=== PATIENT | female | born 1955 | race African-American/Black ===

== ENCOUNTER 2017-07-21 16:43 | Inpatient (IN) | payer MEDICARE, MEDICAID ==
[~2017-07-21] VITALS: Ht 165.1 cm; Wt 67.7 kg
[~2017-07-21 16:43] MED LIST: BENZ1TAB10 PO; LISI-662 PO; LITH300C3 PO; RISP3 PO
[2017-07-21] MEDS ORDERED: LORazepam 1 MG TABLET PO PRN (19:15)
[2017-07-21] MEDS ORDERED: HALOPERIDOL 5 MG TABLET PO PRN (19:15)
[2017-07-21 19:26] VITALS: BP 121/69
[2017-07-21 19:55] VITALS: BP 128/82
[2017-07-21] MEDS ORDERED: PNEUMOCOCCAL VACCINE POLYVALENT 0.5 ML VIAL [PPSV23] IM ONE (20:15)
[2017-07-21] MEDS: RisperiDONE 3 MG TABLET PO SCH (20:46)
[2017-07-21] MEDS: BENZTROPINE MESYLATE 1 MG TABLET PO SCH (20:46)
[2017-07-22 07:18] VITALS: BP 124/72
[2017-07-22 08:35] VITALS: BP 118/61
[2017-07-22 09:12] LABS: BASOPHILS % (AUTO) 0.4 % (0.0-2.0); HEMATOCRIT 36.1 % (36-46); HEMOGLOBIN 11.8 g/dL (12.0-16.0); LYMPHOCYTES # (AUTO) 1.6 K/uL (1.0-4.8); LYMPHOCYTES % (AUTO) 24.5 % (22.0-44.0); MEAN CORPUSCULAR HEMOGLOBIN 27.2 pg (26.0-34.0); MEAN CORPUSCULAR HGB CONC 32.8 G/dL (31.0-37.0); MEAN CORPUSCULAR VOLUME 83 fL (80-100); MONOCYTES # (AUTO) 0.5 K/uL (0.1-1.0); MONOCYTES % (AUTO) 7.6 % (2.0-9.0); NEUTROPHILS # (AUTO) 4.3 K/uL (1.8-7.7); NEUTROPHILS % (AUTO) 66.5 % (40.0-70.0); PLATELET COUNT (AUTO) 253 K/uL (150-450); RED BLOOD CELL COUNT(AUTO) 4.35 MIL/uL (4.00-5.20); RED CELL DISTRIBUTION WIDTH 14.8 % (11.5-14.5); WHITE BLOOD COUNT (AUTO) 6.5 K/uL (4.5-11.0)
[2017-07-22 09:35] LABS: ALANINE AMINOTRANSFERASE 19 U/L (12-78); ALBUMIN 3.1 g/dL (3.4-5.0); ANION GAP 6 mmol/L (8-16); ASPARTATE AMINOTRANSFERASE 20 U/L (15-37); BILIRUBIN,TOTAL 0.4 mg/dL (0.1-1.0); CALCIUM, TOTAL 8.7 mg/dL (8.8-10.5); CARBON DIOXIDE 27 mmol/L (22-29); CHLORIDE 109 mmol/L (98-107); CHOL/HDL RATIO 2.2 (3.9-5.7); GLOMERULAR FILTR. RATE CALC > 60 mL/min (>60); POTASSIUM 4.3 mmol/L (3.5-5.1); SODIUM SERUM 142 mmol/L (136-145); THYROID STIMULATING HORMONE 0.61 uIU/mL (0.36-3.74); TOTAL PROTEIN, SERUM 6.4 g/dL (6.4-8.2); UREA NITROGEN, BLOOD 11 mg/dL (7-18)
[2017-07-22] MEDS: BENZTROPINE MESYLATE 1 MG TABLET PO SCH (09:51)
[2017-07-22] MEDS: RisperiDONE 3 MG TABLET PO SCH ×2 (09:51→16:53)
[2017-07-22 09:54] LABS: HEMOGLOBIN A1C 5.7 % (4.5-6.2)
[2017-07-22] MEDS ORDERED: ACETAMINOPHEN 325 MG TABLET PO PRN (10:30)
[2017-07-22 16:00] VITALS: BP 130/79
[2017-07-22] MEDS ORDERED: BENZTROPINE MESYLATE 2 MG TABLET PO SCH (17:00)
[2017-07-22] MEDS ORDERED: BENZTROPINE MESYLATE 1 MG TABLET PO ONE (17:15)
[2017-07-23 07:07] VITALS: BP 115/72
[2017-07-23 08:30] VITALS: BP 109/59
[2017-07-23] MEDS: BENZTROPINE MESYLATE 2 MG TABLET PO SCH ×2 (08:30→16:10)
[2017-07-23] MEDS: RisperiDONE 3 MG TABLET PO SCH ×2 (08:31→16:10)
[2017-07-23 16:10] VITALS: BP 131/74
[2017-07-23] MEDS: MUPIROCIN CALCIUM 2% 22 GM OINTMENT NASAL SCH (16:10)
[2017-07-24 08:00] VITALS: BP 141/78
[2017-07-24] MEDS: IBUPROFEN 600 MG TABLET PO PRN (08:00)
[2017-07-24 08:15] VITALS: BP 103/62
[2017-07-24] MEDS: MUPIROCIN CALCIUM 2% 22 GM OINTMENT NASAL SCH (08:38)
[2017-07-24] MEDS: BENZTROPINE MESYLATE 2 MG TABLET PO SCH ×2 (08:39→17:50)
[2017-07-24] MEDS: RisperiDONE 3 MG TABLET PO SCH ×2 (08:39→17:55)
[2017-07-24 16:28] VITALS: BP 131/80
[2017-07-25 06:53] LABS: CHOL/HDL RATIO 2.6 (3.9-5.7); CREATINE KINASE, TOTAL 52 U/L (26-192)
[2017-07-25 08:00] VITALS: BP 117/66
[2017-07-25] MEDS: RisperiDONE 3 MG TABLET PO SCH ×2 (08:02→16:07)
[2017-07-25] MEDS: BENZTROPINE MESYLATE 2 MG TABLET PO SCH ×2 (08:02→16:07)
[2017-07-25] MEDS: IBUPROFEN 600 MG TABLET PO PRN (08:02)
[2017-07-25] MEDS: BENZOCAINE 10% 7 GM GEL TP PRN (08:03)
[2017-07-25] MEDS: MUPIROCIN CALCIUM 2% 22 GM OINTMENT NASAL SCH (08:39)
[2017-07-25 17:00] VITALS: BP 117/72
[2017-07-26 00:10] VITALS: BP 117/70
[2017-07-26] MEDS: ZOLPIDEM TARTRATE 10 MG TABLET PO PRN (00:14)
[2017-07-26] MEDS: IBUPROFEN 600 MG TABLET PO PRN ×2 (00:14→08:27)
[2017-07-26] MEDS: BENZOCAINE 10% 7 GM GEL TP PRN ×2 (00:14→08:25)
[2017-07-26 07:16] LABS: HEPATITIS Bs ANTIGEN SCREEN P Negative (Negative); HEPATITIS C AB SCREEN <0.1 s/co ratio (0.0-0.9)
[2017-07-26 08:05] VITALS: BP 150/84
[2017-07-26] MEDS: MUPIROCIN CALCIUM 2% 22 GM OINTMENT NASAL SCH (08:25)
[2017-07-26] MEDS: RisperiDONE 3 MG TABLET PO SCH ×2 (08:25→18:22)
[2017-07-26] MEDS: BENZTROPINE MESYLATE 2 MG TABLET PO SCH ×2 (08:25→18:22)
[2017-07-26 20:58] LABS: APPEARANCE,URINE CLEAR (CLEAR); GLUCOSE, URINE (UA) NEGATIVE (NEGATIVE); KETONES,URINE NEGATIVE (NEGATIVE); LEUKOCYTE ESTERASE ,URINE NEGATIVE (NEGATIVE); OCCULT BLOOD,URINE NEGATIVE (NEGATIVE); PH,URINE 5.5 (5.0-8.0); PROTEIN,URINE NEGATIVE (NEGATIVE)
[2017-07-26 20:59] LABS: ADD UA MICROSCOPIC NO
[2017-07-27 02:30] VITALS: BP 119/79
[2017-07-27] MEDS: IBUPROFEN 600 MG TABLET PO PRN (02:34)
[2017-07-27] MEDS: ZOLPIDEM TARTRATE 10 MG TABLET PO PRN (02:34)
[2017-07-27 08:05] VITALS: BP 111/65
[2017-07-27] MEDS: MUPIROCIN CALCIUM 2% 22 GM OINTMENT NASAL SCH (10:21)
[2017-07-27] MEDS: BENZTROPINE MESYLATE 2 MG TABLET PO SCH ×2 (10:22→17:45)
[2017-07-27] MEDS: RisperiDONE 3 MG TABLET PO SCH ×2 (10:22→17:45)
[2017-07-27] MEDS ORDERED: CloNIDine HCL 0.1 MG TABLET PO PRN (11:30)
[2017-07-27] MEDS: AMOX TR/POT CLAV 875 MG/125 MG TABLET PO SCH ×2 (12:29→17:45)
[2017-07-28 08:19] VITALS: BP 118/69
[2017-07-28] MEDS: BENZTROPINE MESYLATE 2 MG TABLET PO SCH ×2 (08:22→16:13)
[2017-07-28] MEDS: AMOX TR/POT CLAV 875 MG/125 MG TABLET PO SCH ×2 (08:22→16:13)
[2017-07-28] MEDS: RisperiDONE 3 MG TABLET PO SCH ×2 (08:22→16:13)
[2017-07-28] MEDS: MUPIROCIN CALCIUM 2% 22 GM OINTMENT NASAL SCH (08:27)
[2017-07-28 16:00] VITALS: BP 133/77
[2017-07-29 08:00] VITALS: BP 122/71
[2017-07-29] MEDS: AMOX TR/POT CLAV 875 MG/125 MG TABLET PO SCH ×2 (08:17→16:17)
[2017-07-29] MEDS: BENZTROPINE MESYLATE 2 MG TABLET PO SCH ×2 (08:17→16:17)
[2017-07-29] MEDS: RisperiDONE 3 MG TABLET PO SCH ×2 (08:17→16:17)
[2017-07-29] MEDS: BENZOCAINE 10% 7 GM GEL TP PRN (08:18)
[2017-07-29 16:50] VITALS: BP 122/77
[2017-07-30] MEDS: ZOLPIDEM TARTRATE 10 MG TABLET PO PRN (01:53)
[2017-07-30] MEDS: RisperiDONE 3 MG TABLET PO SCH ×2 (08:16→16:24)
[2017-07-30] MEDS: AMOX TR/POT CLAV 875 MG/125 MG TABLET PO SCH ×2 (08:16→16:23)
[2017-07-30] MEDS: BENZTROPINE MESYLATE 2 MG TABLET PO SCH ×2 (08:17→16:24)
[2017-07-30 08:23] VITALS: BP 132/72
[2017-07-30 16:49] VITALS: BP 128/77
[2017-07-30] MEDS: IBUPROFEN 600 MG TABLET PO PRN (16:49)
[2017-07-31] MEDS: ZOLPIDEM TARTRATE 10 MG TABLET PO PRN (02:32)
[2017-07-31] MEDS: AMOX TR/POT CLAV 875 MG/125 MG TABLET PO SCH ×2 (08:12→16:05)
[2017-07-31] MEDS: BENZTROPINE MESYLATE 2 MG TABLET PO SCH ×2 (08:12→16:05)
[2017-07-31] MEDS: RisperiDONE 3 MG TABLET PO SCH ×2 (08:12→16:05)
[2017-07-31 08:45] VITALS: BP 138/77
[2017-07-31] MEDS: NICOTINE 21 MG/24 HOUR PATCH TD SCH (12:16)
[2017-07-31 18:03] VITALS: BP 147/73
[2017-07-31] MEDS: BENZOCAINE 10% 7 GM GEL TP PRN (20:09)
[2017-08-01] MEDS: ZOLPIDEM TARTRATE 10 MG TABLET PO PRN (00:12)
[2017-08-01 02:45] VITALS: BP 143/93
[2017-08-01] MEDS: IBUPROFEN 600 MG TABLET PO PRN ×3 (02:51→16:17)
[2017-08-01] MEDS: NICOTINE 21 MG/24 HOUR PATCH TD SCH (08:00)
[2017-08-01] MEDS: AMOX TR/POT CLAV 875 MG/125 MG TABLET PO SCH (08:01)
[2017-08-01] MEDS: BENZTROPINE MESYLATE 2 MG TABLET PO SCH ×2 (08:01→16:17)
[2017-08-01] MEDS: RisperiDONE 3 MG TABLET PO SCH ×2 (08:01→16:17)
[2017-08-01] MEDS: BENZOCAINE 10% 7 GM GEL TP PRN (08:39)
[2017-08-01 08:59] VITALS: BP 124/74
[2017-08-01 16:15] VITALS: BP 113/77
[2017-08-02] MEDS: BENZTROPINE MESYLATE 2 MG TABLET PO SCH ×2 (07:56→17:33)
[2017-08-02] MEDS: RisperiDONE 3 MG TABLET PO SCH ×2 (07:56→17:33)
[2017-08-02] MEDS: NICOTINE 21 MG/24 HOUR PATCH TD SCH (07:57)
[2017-08-02 10:14] VITALS: BP 148/71
[2017-08-02] MEDS: BENZOCAINE 10% 7 GM GEL TP PRN (14:18)
[2017-08-02] MEDS: IBUPROFEN 600 MG TABLET PO PRN (14:18)
[2017-08-02 16:00] VITALS: BP 117/70
[2017-08-03 03:43] VITALS: BP 142/83
[2017-08-03] MEDS: IBUPROFEN 600 MG TABLET PO PRN (03:43)
[2017-08-03 08:25] VITALS: BP 134/81
[2017-08-03] MEDS: RisperiDONE 3 MG TABLET PO SCH (09:21)
[2017-08-03] MEDS: BENZTROPINE MESYLATE 2 MG TABLET PO SCH (09:21)
[2017-08-03] MEDS: NICOTINE 21 MG/24 HOUR PATCH TD SCH (09:21)
[2017-08-03] MEDS ORDERED: BENZ2TAB10 PO (10:10)
== END 2017-08-03 14:00 | disposition home or self-care (01) | DRG 885 ==
LOC: B3A 19:32 → 3EC 07-23 19:20 → 3EI 08-03 10:45
PROVIDERS: ADMIT Psychiatry & Neurology Psychiatry; ATTEND Psychiatry & Neurology Psychiatry
DX: F20.0 Paranoid schizophrenia (principal); R00.1 Bradycardia, unspecified; I10 Essential (primary) hypertension; E55.9 Vitamin D deficiency, unspecified; D64.9 Anemia, unspecified; K02.9 Dental caries, unspecified; N28.9 Disorder of kidney and ureter, unspecified; M54.9 Dorsalgia, unspecified; Z59.0 Homelessness; Z22.322 Carrier or suspected carrier of Methicillin resistant Staphylococcus aureus
CPT/HCPCS: 80074; 80307; 82306; 82607; 82746; 83036; 84439; 84443; 86592; 87081

== ENCOUNTER 2019-10-09 13:01 | Inpatient (IN) | payer MEDICARE, MEDICAID ==
[~2019-10-09] VITALS: Ht 154.9 cm; Wt 56.4 kg
[~2019-10-09 13:01] MED LIST changes: -BENZ1TAB10 PO; +BENZ2TAB10 PO; -LISI-662 PO; -LITH300C3 PO
[2019-10-09 13:41] VITALS: BP 116/77
[2019-10-09] MEDS ORDERED: ZOLPIDEM TARTRATE 10 MG TABLET PO PRN (13:45)
[2019-10-09] MEDS ORDERED: PNEUMOCOCCAL VACCINE POLYVALENT 0.5 ML VIAL [PPSV23] IM ONE (14:15)
[2019-10-09] MEDS: LORazepam 1 MG TABLET PO PRN (14:35)
[2019-10-09] MEDS: HALOPERIDOL 5 MG TABLET PO PRN (14:35)
[2019-10-09 14:53] VITALS: BP 152/77
[2019-10-09 16:41] VITALS: BP 140/82
[2019-10-09] MEDS ORDERED: ACETAMINOPHEN 325 MG TABLET PO PRN (16:45)
[2019-10-09] MEDS ORDERED: CloNIDine HCL 0.1 MG TABLET PO PRN (16:45)
[2019-10-09] MEDS ORDERED: PETROLATUM,WHITE 28 GM JELLY TP PRN (16:45)
[2019-10-09] MEDS ORDERED: MAGNESIUM HYDROXIDE SUSPENSION 30 ML UDCUP PO PRN (16:45)
[2019-10-09] MEDS ORDERED: NICOTINE 14 MG/24 HOUR PATCH TD PRN (16:45)
[2019-10-09] MEDS ORDERED: LOPERAMIDE HCL 2 MG CAPSULE PO PRN (16:45)
[2019-10-09] MEDS ORDERED: DOCUSATE SODIUM 100 MG CAPSULE PO PRN (16:45)
[2019-10-09] MEDS ORDERED: ONDANSETRON HCL 4 MG TABLET PO PRN (16:45)
[2019-10-09] MEDS ORDERED: MAG HYDROX/AL HYDROX/SIMETH ES 30 ML SUSPENSION UDCUP PO PRN (16:45)
[2019-10-09] MEDS ORDERED: ALBUTEROL SULFATE HFA 90 MCG/PUFF 8 GM INHALER IH PRN (16:45)
[2019-10-09] MEDS ORDERED: GuaiFENesin/D-METHORPHAN [SUGAR-FREE] 200-20MG/10 ML SYRUP UDCUP PO PRN (16:45)
[2019-10-09] MEDS ORDERED: IBUPROFEN 400 MG TABLET PO PRN (16:45)
[2019-10-10 05:32] VITALS: BP 123/91
[2019-10-10] MEDS: LORazepam 1 MG TABLET PO PRN (08:12)
[2019-10-10] MEDS: HALOPERIDOL 5 MG TABLET PO PRN (08:12)
[2019-10-10] MEDS: NICOTINE 14 MG/24 HOUR PATCH TD SCH (08:15)
[2019-10-10 08:50] LABS: BASOPHILS % (AUTO) 0.7 % (0.0-2.0); EOSINOPHILS % (AUTO) 1.9 % (1.0-6.0); HEMATOCRIT 40.1 % (36-46); HEMOGLOBIN 13.2 g/dL (12.0-16.0); LYMPHOCYTES # (AUTO) 2.3 K/uL (1.0-4.8); MEAN CORPUSCULAR HEMOGLOBIN 27.5 pg (26.0-34.0); MEAN CORPUSCULAR HGB CONC 32.9 G/dL (31.0-37.0); MEAN CORPUSCULAR VOLUME 84 fL (80-100); MONOCYTES # (AUTO) 0.5 K/uL (0.1-1.0); MONOCYTES % (AUTO) 7.5 % (2.0-9.0); NEUTROPHILS # (AUTO) 3.6 K/uL (1.8-7.7); NEUTROPHILS % (AUTO) 54.9 % (40.0-70.0); PLATELET COUNT (AUTO) 284 K/uL (150-450); RED BLOOD CELL COUNT(AUTO) 4.79 MIL/uL (4.00-5.20); RED CELL DISTRIBUTION WIDTH 14.1 % (11.5-14.5)
[2019-10-10 09:18] LABS: HEMOGLOBIN A1C 4.6 % (4.5-6.2)
[2019-10-10 09:38] LABS: ALANINE AMINOTRANSFERASE 25 U/L (12-78); ALBUMIN 3.9 g/dL (3.4-5.0); ALKALINE PHOSPHATASE 84 U/L (46-116); ANION GAP 5 mmol/L (8-16); ASPARTATE AMINOTRANSFERASE 17 U/L (15-37); BILIRUBIN,TOTAL 0.2 mg/dL (0.1-1.0); CALCIUM, TOTAL 9.4 mg/dL (8.8-10.5); CARBON DIOXIDE 31 mmol/L (22-29); CHLORIDE 103 mmol/L (98-107); CHOL/HDL RATIO 2.3 (3.9-5.7); CHOLESTEROL 185 mg/dL (131-200); CREATININE 0.91 mg/dL (0.60-1.30); FREE T4 (FREE THYROXINE) 0.88 ng/dL (0.76-1.46); GLOMERULAR FILTR. RATE CALC > 60 mL/min (>60); GLUCOSE,RANDOM 73 mg/dL (70-110); HDL CHOLESTEROL 79 mg/dL (40-60); LDL CHOL (CALC.) 97 mg/dL (0-130); POTASSIUM 4.5 mmol/L (3.5-5.1); SODIUM SERUM 139 mmol/L (136-145); THYROID STIMULATING HORMONE 1.14 uIU/mL (0.36-3.74); TOTAL PROTEIN, SERUM 8.1 g/dL (6.4-8.2); TRIGLYCERIDES 45 mg/dL (15-150); UREA NITROGEN, BLOOD 22 mg/dL (7-18)
[2019-10-10 10:27] VITALS: BP 138/95
[2019-10-10] MEDS ORDERED: IBUPROFEN 400 MG TABLET PO PRN (11:30)
[2019-10-10] MEDS ORDERED: ALBUTEROL SULFATE HFA 90 MCG/PUFF 8 GM INHALER IH PRN (11:30)
[2019-10-10] MEDS ORDERED: PETROLATUM,WHITE 28 GM JELLY TP PRN (11:30)
[2019-10-10] MEDS ORDERED: MAG HYDROX/AL HYDROX/SIMETH ES 30 ML SUSPENSION UDCUP PO PRN (11:30)
[2019-10-10] MEDS ORDERED: GuaiFENesin/D-METHORPHAN [SUGAR-FREE] 200-20MG/10 ML SYRUP UDCUP PO PRN (11:30)
[2019-10-10] MEDS ORDERED: ACETAMINOPHEN 325 MG TABLET PO PRN (11:30)
[2019-10-10] MEDS ORDERED: LOPERAMIDE HCL 2 MG CAPSULE PO PRN (11:30)
[2019-10-10] MEDS ORDERED: ONDANSETRON HCL 4 MG TABLET PO PRN (11:30)
[2019-10-10] MEDS ORDERED: MAGNESIUM HYDROXIDE SUSPENSION 30 ML UDCUP PO PRN (11:30)
[2019-10-10] MEDS ORDERED: DOCUSATE SODIUM 100 MG CAPSULE PO PRN (11:30)
[2019-10-10] MEDS ORDERED: NICOTINE 14 MG/24 HOUR PATCH TD PRN (11:30)
[2019-10-10] MEDS ORDERED: CloNIDine HCL 0.1 MG TABLET PO PRN (11:30)
[2019-10-10 16:22] VITALS: BP 144/81
[2019-10-10] MEDS: RisperiDONE 3 MG TABLET PO SCH (20:05)
[2019-10-10] MEDS: BENZTROPINE MESYLATE 2 MG TABLET PO SCH (20:05)
[2019-10-11 00:05] VITALS: BP 141/98
[2019-10-11] MEDS: HALOPERIDOL 5 MG TABLET PO PRN (01:44)
[2019-10-11] MEDS: LORazepam 1 MG TABLET PO PRN ×2 (01:44→08:13)
[2019-10-11] MEDS: RisperiDONE 3 MG TABLET PO SCH ×2 (08:08→20:39)
[2019-10-11] MEDS: NICOTINE 14 MG/24 HOUR PATCH TD SCH (08:08)
[2019-10-11] MEDS: BENZTROPINE MESYLATE 2 MG TABLET PO SCH ×2 (08:08→20:38)
[2019-10-11 08:10] VITALS: BP 139/88
[2019-10-11 08:11] LABS: HEMOGLOBIN A1C 5.5 % (4.5-6.2)
[2019-10-11 08:27] LABS: CHOL/HDL RATIO 2.6 (3.9-5.7)
[2019-10-11 08:28] LABS: THYROID STIMULATING HORMONE 0.87 uIU/mL (0.36-3.74)
[2019-10-11 16:02] VITALS: BP 136/86
[2019-10-12 05:42] VITALS: BP 134/89
[2019-10-12 08:32] VITALS: BP 133/75
[2019-10-12] MEDS: BENZTROPINE MESYLATE 2 MG TABLET PO SCH ×2 (08:55→20:07)
[2019-10-12] MEDS: RisperiDONE 3 MG TABLET PO SCH ×2 (08:55→20:08)
[2019-10-12] MEDS: NICOTINE 14 MG/24 HOUR PATCH TD SCH (08:56)
[2019-10-12] MEDS: HALOPERIDOL 5 MG TABLET PO PRN (09:40)
[2019-10-12] MEDS: LORazepam 1 MG TABLET PO PRN (09:40)
[2019-10-12 16:18] VITALS: BP 140/84
[2019-10-13 00:16] VITALS: BP 127/71
[2019-10-13 08:20] VITALS: BP 125/62
[2019-10-13] MEDS: NICOTINE 14 MG/24 HOUR PATCH TD SCH (08:23)
[2019-10-13] MEDS: RisperiDONE 3 MG TABLET PO SCH ×2 (08:23→20:21)
[2019-10-13] MEDS: BENZTROPINE MESYLATE 2 MG TABLET PO SCH ×2 (08:23→20:21)
[2019-10-13 16:04] VITALS: BP_SYST 114
[2019-10-14 00:58] VITALS: BP 128/75
[2019-10-14 08:14] VITALS: BP 119/73
[2019-10-14] MEDS: BENZTROPINE MESYLATE 2 MG TABLET PO SCH ×2 (08:32→20:09)
[2019-10-14] MEDS: RisperiDONE 3 MG TABLET PO SCH ×2 (08:32→20:09)
[2019-10-14] MEDS: NICOTINE 14 MG/24 HOUR PATCH TD SCH (08:32)
[2019-10-14 09:39] VITALS: BP 121/74
[2019-10-14 16:23] VITALS: BP 128/73
[2019-10-15 05:39] VITALS: BP 125/72
[2019-10-15 08:50] VITALS: BP 145/78
[2019-10-15] MEDS: RisperiDONE 3 MG TABLET PO SCH (09:00)
[2019-10-15] MEDS: NICOTINE 14 MG/24 HOUR PATCH TD SCH (09:00)
[2019-10-15] MEDS: BENZTROPINE MESYLATE 2 MG TABLET PO SCH (09:00)
[2019-10-15] MEDS ORDERED: RISP3 PO (10:37)
[2019-10-15] MEDS ORDERED: BENZ2TAB10 PO (10:37)
== END 2019-10-15 12:35 | disposition home or self-care (01) | DRG 885 ==
LOC: B2X 13:46
PROC: 3E0234Z Introduction of Serum, Toxoid and Vaccine into Muscle, Percutaneous Approach (ICD-10-PCS; principal; 2019-10-09)
DX: F20.0 Paranoid schizophrenia (principal); N18.9 Chronic kidney disease, unspecified; E78.5 Hyperlipidemia, unspecified; I12.9 Hypertensive chronic kidney disease with stage 1 through stage 4 chronic kidney disease, or unspecified chronic kidney disease; R45.87 Impulsiveness; F12.20 Cannabis dependence, uncomplicated; Z59.0 Homelessness; Z79.899 Other long term (current) drug therapy; Z86.59 Personal history of other mental and behavioral disorders; Z23 Encounter for immunization
CPT/HCPCS: 83036; 84439; 84443; 87081; 90732

== ENCOUNTER 2020-02-23 11:45 | Inpatient (IN) | payer MEDICARE, MEDICAID ==
[~2020-02-23] VITALS: Ht 162.6 cm; Wt 52.8 kg
[2020-02-23] MEDS ORDERED: RISP3 PO (12:24)
[2020-02-23] MEDS: RisperiDONE 3 MG TABLET PO SCH ×2 (14:45→17:34)
[2020-02-23] MEDS ORDERED: HALOPERIDOL 5 MG TABLET PO PRN (14:45)
[2020-02-23] MEDS ORDERED: ZOLPIDEM TARTRATE 10 MG TABLET PO PRN (14:45)
[2020-02-23] MEDS ORDERED: LORazepam 2 MG TABLET PO PRN (14:45)
[2020-02-23 16:00] VITALS: BP 125/79
[2020-02-23] MEDS: FERROUS SULFATE 325 MG EC TABLET PO SCH (17:33)
[2020-02-23 17:43] VITALS: BP 125/72
[2020-02-24 06:49] VITALS: BP 117/72
[2020-02-24] MEDS: FERROUS SULFATE 325 MG EC TABLET PO SCH ×2 (07:09→16:20)
[2020-02-24 08:10] VITALS: BP 137/79
[2020-02-24] MEDS: RisperiDONE 3 MG TABLET PO SCH ×2 (08:16→16:20)
[2020-02-24 16:38] VITALS: BP 125/67
[2020-02-25 05:55] VITALS: BP 148/84
[2020-02-25] MEDS: FERROUS SULFATE 325 MG EC TABLET PO SCH ×2 (06:44→16:31)
[2020-02-25 08:12] VITALS: BP 127/93
[2020-02-25] MEDS: RisperiDONE 3 MG TABLET PO SCH ×2 (08:30→16:31)
[2020-02-25 16:04] VITALS: BP 127/79
[2020-02-25] MEDS ORDERED: PETROLATUM,WHITE 28 GM JELLY TP PRN (17:15)
[2020-02-25] MEDS ORDERED: ACETAMINOPHEN 325 MG TABLET PO PRN (17:15)
[2020-02-25] MEDS ORDERED: DOCUSATE SODIUM 100 MG CAPSULE PO PRN (17:15)
[2020-02-25] MEDS ORDERED: ONDANSETRON HCL 4 MG TABLET PO PRN (17:15)
[2020-02-25] MEDS ORDERED: MAGNESIUM HYDROXIDE SUSPENSION 30 ML UDCUP PO PRN (17:15)
[2020-02-25] MEDS ORDERED: MAG HYDROX/AL HYDROX/SIMETH ES 30 ML SUSPENSION UDCUP PO PRN (17:15)
[2020-02-25] MEDS ORDERED: IBUPROFEN 400 MG TABLET PO PRN (17:15)
[2020-02-25] MEDS ORDERED: ALBUTEROL SULFATE HFA 90 MCG/PUFF 8 GM INHALER IH PRN (17:15)
[2020-02-25] MEDS ORDERED: CloNIDine HCL 0.1 MG TABLET PO PRN (17:15)
[2020-02-25] MEDS ORDERED: LOPERAMIDE HCL 2 MG CAPSULE PO PRN (17:15)
[2020-02-25] MEDS ORDERED: GuaiFENesin/D-METHORPHAN [SUGAR-FREE] 200-20MG/10 ML SYRUP UDCUP PO PRN (17:15)
[2020-02-26 06:06] VITALS: BP 132/73
[2020-02-26] MEDS: FERROUS SULFATE 325 MG EC TABLET PO SCH ×2 (06:43→16:40)
[2020-02-26 08:10] VITALS: BP 116/64
[2020-02-26] MEDS: RisperiDONE 3 MG TABLET PO SCH ×2 (08:19→16:40)
[2020-02-26] MEDS: NICOTINE 14 MG/24 HOUR PATCH TD PRN (10:24)
[2020-02-26 16:08] VITALS: BP 120/76
[2020-02-27 05:20] VITALS: BP 116/67
[2020-02-27] MEDS: FERROUS SULFATE 325 MG EC TABLET PO SCH ×2 (06:42→16:32)
[2020-02-27] MEDS: RisperiDONE 3 MG TABLET PO SCH ×2 (08:09→16:32)
[2020-02-27 08:35] VITALS: BP 115/61
[2020-02-27] MEDS: NICOTINE 14 MG/24 HOUR PATCH TD PRN (08:40)
[2020-02-27 16:05] VITALS: BP 107/63
[2020-02-27] MEDS ORDERED: FERR-89 PO (22:22)
[2020-02-28 01:01] VITALS: BP 124/70
[2020-02-28] MEDS: FERROUS SULFATE 325 MG EC TABLET PO SCH (06:27)
[2020-02-28 08:11] VITALS: BP 114/66
[2020-02-28] MEDS: RisperiDONE 3 MG TABLET PO SCH (08:11)
== END 2020-02-28 08:26 | disposition home or self-care (01) | DRG 885 ==
LOC: B2X 15:11
PROVIDERS: ADMIT Psychiatry & Neurology Child & Adolescent Psychiatry; ATTEND Psychiatry & Neurology Psychiatry
DX: F20.9 Schizophrenia, unspecified (principal); I10 Essential (primary) hypertension; D64.9 Anemia, unspecified; E78.5 Hyperlipidemia, unspecified; Z59.0 Homelessness
CPT/HCPCS: 84443